=== PATIENT | female | born 2000 | race Caucasian/White ===

== ENCOUNTER 2021-05-18 10:02 | Day surgery (SDC) | payer BC, SELFPAY ==
[~2021-05-18] VITALS: Ht 177.8 cm; Wt 73.9 kg
[2021-05-18] MEDS ORDERED: METHYLERGONOVINE MALEATE 0.2 MG/ML AMP ONE ×3 (12:53→13:15)
[2021-05-18] MEDS ORDERED: LR 1,000 ML IV.SOLN IV ONE (13:10)
[2021-05-18] MEDS ORDERED: PROPOFOL 200MG/ 20ML VIAL (DIPRIVAN) IV ONE (13:10)
[2021-05-18] MEDS ORDERED: KETOROLAC TROMETHAMINE 30 MG VIAL ONE (13:10)
[2021-05-18] MEDS ORDERED: WATER FOR IRRIGATION,STERILE 1,000 ML IRRIG.SOLN IR ONE (13:10)
[2021-05-18] MEDS ORDERED: DESFLURANE 15 MIN GAS INH ONE (13:10)
[2021-05-18] MEDS ORDERED: DEXAMETHASONE SOD PHOSPHATE 4 MG/ML VIAL ONE (13:10)
[2021-05-18] MEDS ORDERED: ONDANSETRON HCL 4 MG/2 ML VIAL ONE (13:10)
[2021-05-18] MEDS ORDERED: fentaNYL CITRATE/PF 100 MCG/2 ML AMP ONE (13:10)
[2021-05-18] MEDS ORDERED: HYDROmorphone 1 MG/ML INJ. CARTRIDGE IVP PRN ×2 (13:15)
[2021-05-18] MEDS ORDERED: HYDROmorphone 2 MG/ML VIAL IVP PRN (13:15)
[2021-05-18 13:33] LABS: HEMATOCRIT 29.7 % (36-48); HEMOGLOBIN 10.4 g/dL (12.0-16.0)
[2021-05-18 15:04] VITALS: BP_SYST 107
== END 2021-05-18 15:00 | disposition home or self-care (01) ==
LOC: SDS 10:02 → SMU 10:04 → SDS 15:00
PROVIDERS: ATTEND Obstetrics & Gynecology
DX: O02.1 Missed abortion (principal); Z3A.10 10 weeks gestation of pregnancy; Z79.899 Other long term (current) drug therapy
CPT/HCPCS: 36415 ×2; 59820; 85018; 87426; 88305; J1100; J1885; J2210; J2405; J2704; J3010; J7120